=== PATIENT | female | born 1975 | race Caucasian/White ===

== ENCOUNTER → 2017-11-12 | Outpatient (CLI) | payer OTHER ==
--- NOTE | 2017-11-12 18:36 | Diagnostic Imaging Report ---
EXAMINATION: MRI of the lumbar spine without contrast HISTORY: Low back pain radiating along the back of the left lower extremity for the last 2 months COMPARISON: None. TECHNIQUE: Sagittal T1, T2, STIR; axial T2 and proton density. FINDINGS: It is assumed that there are 5 lumbar vertebrae. Curvature/Alignment: Normal lordosis. Vertebrae: No evidence of recent fracture, infection, or neoplasm. Conus: Normal, terminating at L1-L2 Cauda equina: Unremarkable. Lower thoracic: Asymmetric to the left is old at T11 and T12 and to the right at T10-11 without significant stenosis. Paraspinal soft tissues: Unremarkable. Degenerative changes: L1-L2: Unremarkable. L2-L3: Minimal symmetric folds without canal or foraminal stenosis L3-L4: Mild asymmetric to left disc bulge, small 3 mm AP diameter central disc protrusion without associated canal stenosis or neural compression L4-L5: Asymmetric to the right disc bulge and facet processes result in prominent narrowing of the right lateral recess, with possible displacement of the traversing right L5 nerve root. Approximately 7 mm AP diameter left subarticular inferiorly migrated disc extrusion, which is compressing the traversing left L5 nerve root. L5-S1: Asymmetric to the left disc osteophyte, ligamentum flavum thickening and facet processes. Prominent narrowing of the left lateral recesses, with displacement of the traversing left S1 nerve root. Moderate left and mild right foraminal stenoses. Sacroiliac joints: Unremarkable. IMPRESSION: 1. Prominent left subarticular inferiorly migrated disc herniation at L4-L5, which is compressing the left L5 nerve root. 2. 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 Signed by: Dr. Mylene Michele M.D. on 11/12/2017 6:33 PM
== END ==
LOC: MRI 14:18
PROVIDERS: ATTEND Family Medicine
DX: M51.26 Other intervertebral disc displacement, lumbar region (principal); R20.2 Paresthesia of skin
CPT/HCPCS: 72148; 81025

== ENCOUNTER 2017-11-22 06:11 | Observation (INO) | payer OTHER ==
[2017-11-20 12:57] LABS: BASOPHILS # (AUTO) 0.1 (0.0-0.1); BASOPHILS % 0.4 % (0.0-1.0); EOSINOPHILS # (AUTO) 0.3 (0.0-0.4); EOSINOPHILS % 2.1 % (0.0-6.0); HEMATOCRIT 41.4 % (34.2-44.1); HEMOGLOBIN 14.1 g/dL (12.0-16.0); LYMPHOCYTES # (AUTO) 3.2 (1.0-3.2); LYMPHOCYTES % 22.7 % (18.0-39.1); MEAN CORPUSCULAR HEMOGLOBIN 30.5 pg (28-32); MEAN CORPUSCULAR HGB CONC 34.1 g/dL (31-35); MEAN CORPUSCULAR VOLUME 89.6 fL (81-99); MONOCYTES # (AUTO) 0.9 (0.2-0.8); MONOCYTES % 6.5 % (4.4-11.3); NEUTROPHILS # (AUTO) 9.5 (2.1-6.9); NEUTROPHILS % 67.8 % (38.7-80.0); PLATELET COUNT 262 x10e3/uL (140-360); RED BLOOD COUNT 4.62 x10e6/uL (3.6-5.1); RED CELL DISTRIBUTION WIDTH 13.2 % (11.7-14.4)
[2017-11-20 13:08] LABS: INR 1.05; PARTIAL THROMBOPLASTIN TIME 27.1 seconds (23.8-35.5); PROTHROMBIN TIME 12.9 seconds (11.9-14.5)
--- NOTE | 2017-11-20 13:09 | Diagnostic Imaging Report ---
PROCEDURE: Frontal and lateral views of the chest. COMPARISON: None. INDICATIONS: PRE OPERATIVE CHEST X-RAY FOR BACK SURGERY FINDINGS: Lines/tubes: None. Lungs: The lungs are well inflated and clear. There is no evidence of pneumonia or pulmonary edema. Pleura: There is no pleural effusion or pneumothorax. Heart and mediastinum: The heart and the mediastinum are normal. Bones: No acute bony abnormality. IMPRESSION: No acute radiographic abnormality. Dictated by: Mike Granger M.D. on 11/20/2017 at 13:09 Electronically approved by: Mike Granger M.D. on 11/20/2017 at 13:09
[2017-11-20 13:17] LABS: BLOOD UREA NITROGEN 14 mg/dL (7-26); BUN/CREATININE RATIO 19 (6-25); CALCIUM 9.3 mg/dL (8.4-10.2); CARBON DIOXIDE 26 mmol/L (22-29); CHLORIDE 106 mmol/L (98-107); CREATININE, SERUM 0.75 mg/dL (0.57-1.11); EST GLOMERULAR FILTRATION RATE > 60 ML/MIN (60-); GLUCOSE 107 mg/dL (74-118); SODIUM 140 mmol/L (136-145)
[~2017-11-22] VITALS: Ht 177.8 cm; Wt 111.4 kg
[~2017-11-22 06:11] MED LIST: TYLENOL WITH C1 EACH PO
--- OUTSIDE RECORDS SUMMARY | 2017-11-22 06:14 | XMS REPORT ---
Author [facility] Address Unknown Phone Unavailable Care Team Providers Care Band Saw Operator Name Role Phone NESTOR RAMIRES Unavailable Unavailable CYNTHIA MADISON Unavailable Unavailable Problems This patient has no known problems. Allergies, Adverse Reactions, Alerts This patient has no known allergies or adverse reactions. Medications This patient has no known medications. Results Test Description Test Time Test Comments Text Results Atomic Results Result Comments CHEST 2 VIEWS [place] [address] Patient Name: RANDOLPH HUYNH MR #: [id number] : 1975 Age/Sex: 42/F Req #: [id number] [facility] Physician: Ordered by: NETSOR RAMIRES MD Report #: [id number] Location: OR Room/Bed: Procedure: [id number] DX/CHEST 2 VIEWS Exam Date: 11/20/17 Exam Time: 1240 REPORT STATUS: Signed PROCEDURE: Frontal and lateral views of the chest. COMPARISON: None. INDICATIONS: PRE OPERATIVE CHEST X-RAY FOR BACK SURGERY FINDINGS: Lines/tubes: None. Lungs: The lungs are well inflated and clear. There is no evidence of pneumonia or pulmonary edema. Pleura: There is no pleural effusion or pneumothorax. Heart and mediastinum: The heart and the mediastinum are normal. Bones: No acute bony abnormality. IMPRESSION: No acute radiographic abnormality. Dictated by: Sivakumar Patiño M.D. on 11/20 at 13:09 Electronically approved by: Sivakumar Patiño M.D. on 2017 at 13:09 Dictated By: SIVAKUMAR PATIÑO MD Transcribed By: YVROSE on 11/20/17 130 COPY TO: NESTOR RAMIRES MD MRI SPINE LUMBAR WO [place] [address] Patient Name: RANDOLPH HUYNH MR #: [id number] : 1975 Age/Sex: 42/F Req #: [id number] Adm Physician: Ordered by: CYNTHIA MADISON DO Report #: [id number] Location: MRI Room/Bed: Procedure: [id number] MRI/MRI SPINE LUMBAR WO Exam Date: Exam Time: REPORT STATUS: Signed EXAMINATION: MRI of the lumbar spine without contrast HISTORY: Low back pain radiating along the back of the left lower extremity for the last 2 months COMPARISON: None. TECHNIQUE: Sagittal T1, T2, STIR; axial T2 and proton density. FINDINGS: It is assumed that there are 5 lumbar vertebrae. Curvature/ Alignment: Normal lordosis. Vertebrae: No evidence of recent fracture, infection, or neoplasm. Conus: Normal, terminating at L1-L2 Cauda equina: Unremarkable. Lower thoracic: Asymmetric to the left is old at T11 and T12 and to the right at T10-11 without significant stenosis. Paraspinal soft tissues: Unremarkable. Degenerative changes: L1-L2 : Unremarkable. L2-L3: Minimal symmetric folds without canal or foraminal stenosis L3-L4: Mild asymmetric to left disc bulge, small 3 mm AP diameter central disc protrusion without associated canal stenosis or neural compression L4-L5: Asymmetric to the right disc bulge and facet processes result in prominent narrowing of the right lateral recess, with possible displacement of the traversing right L5 nerve root. Approximately 7 mm AP diameter left subarticular inferiorly migrated disc extrusion, which is compressing the traversing left L5 nerve root. L5-S1: Asymmetric to the left disc osteophyte, ligamentum flavum thickening and facet processes. Prominent narrowing of the left lateral recesses, with displacement of the traversing left S1 nerve root. Moderate left and mild right foraminal stenoses. Sacroiliac joints: Unremarkable. IMPRESSION: 1. Prominent left subarticular inferiorly migrated disc herniation at L4-L5, which is compressing the left L5 nerve root. 2. 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 Signed by: Dr. Genna Michele M.D. on 11/12/2017 6:33 PM Dictated By: GENNA MICHELE MD 183 Transcribed By: ROSANA on 11/12/17 183 COPY TO: YCNTHIA MADISON DO
[2017-11-22] MEDS ORDERED: GELATIN SPONGE SZ 100 ONE (06:48)
[2017-11-22] MEDS ORDERED: THROMBIN FOR SOLN 5,000 UNIT VIAL ONE (06:48)
[2017-11-22] MEDS ORDERED: BACITRACIN 50,000 UNIT VIAL ONE (06:48)
[2017-11-22] MEDS ORDERED: CYCLOBENZAPRINE5 MG PO (06:49)
[2017-11-22] MEDS ORDERED: ACETAMINOPHEN 1000 MG/100 ML 100 ML IV ONE (06:59)
[2017-11-22] MEDS ORDERED: LIDOCAINE HCL (LTA) 4 ML SOLN ONE (06:59)
[2017-11-22] MEDS ORDERED: CEFAZOLIN SOD 2 GM/D5W 50ML 50 ML IV ONE (07:10)
[2017-11-22] MEDS ORDERED: LIDOCAINE 2% /EPINEPHRINE 20 ML SDV INJ ONE (07:15)
[2017-11-22] MEDS ORDERED: PROMETHAZINE HCL (IM) 25 MG/ML VIAL IM PRN (10:30)
[2017-11-22] MEDS ORDERED: ACETAMINOPHEN 325 MG TAB PO PRN (10:30)
[2017-11-22] MEDS ORDERED: CARISOPRODOL 350 MG TAB PO PRN (10:30)
[2017-11-22] MEDS ORDERED: ZOLPIDEM TARTRATE 5 MG TAB PO PRN (10:30)
[2017-11-22] MEDS ORDERED: MORPHINE SULFATE 5 MG/ML VIAL IM PRN (10:30)
[2017-11-22] MEDS ORDERED: CEPACOL SORE THROAT LOZENGES PO PRN (10:30)
[2017-11-22] MEDS ORDERED: MAGNESIUM/ALUMINUM/SIMETHICONE 30 ML UDC PO PRN (10:30)
[2017-11-22] MEDS ORDERED: HYDROMORPHONE 2MG/ML INJ IV PRN (10:30)
[2017-11-22] MEDS ORDERED: ONDANSETRON HCL INJ 2 MG/ML VIAL IV PRN (10:30)
[2017-11-22] MEDS ORDERED: HYDROMORPHONE 1MG/1ML INJ ONE (10:58)
[2017-11-22 12:01] VITALS: BP 145/67
[2017-11-22] MEDS: LACTATED RINGER'S 1,000 ML IV SCH ×3 (14:00→22:59)
[2017-11-22] MEDS ORDERED: CEFAZOLIN SOD 1 GM/NS 50ML 50 ML IV SCH (14:00)
[2017-11-22] MEDS: CEFAZOLIN SOD 1 GM VIAL IV SCH ×2 (14:12→22:00)
--- NOTE | 2017-11-22 15:20 | Operative Report ---
DATE OF PROCEDURE: November 22, 2017 PREOPERATIVE DIAGNOSIS: Left L4-5 disk herniation with radiculopathy, M51.16. POSTOPERATIVE DIAGNOSIS: Left L4-5 disk herniation with radiculopathy, M51.16. PROCEDURE: Left L4-L5 laminotomy, medial facetectomy, and microsurgical diskectomy, 66492. ANESTHESIA: General. INDICATIONS: Patient is a 42-year-old woman who presents with a left L4-L5 disk extrusion with inferior migration of the extruded disk fragment into the left L5 lateral recess with marked compression of that nerve root. She was taken to operating room for microsurgical diskectomy. PROCEDURE IN DETAIL: After induction of general anesthesia, the patient was placed on the operating table in prone position over a Alfonzo frame. Lumbar region was prepped and draped in sterile fashion. A preoperative x-ray was obtained. A midline incision was created. Lumbar fascia was opened in left of midline and subperiosteal dissection was carried out to expose the underlying laminae. Localization was found at L5-S1 by x-ray and one level was counted above this level to locate the correct L4-5 segment without extending the incision. The medial aspect of the left L4-L5 facet joint was exposed. The operating microscope was brought in. A high-speed drill equipped with ivy haris was used to drill the inferior aspect of lamina of L4 and the medial rim of the L4-5 facet joint and the superior aspect of lamina of L5. The ligamentum flavum was resected. The dural sac and the traversing L5 nerve root were exposed. The epidural veins lateral to the nerve root were bipolar coagulated and divided with microscissors. A ball probe was passed ventral to the nerve root and directed inferiorly and used to palpate the extruded disk material in the L5 lateral recess. Edge of the disk was then delivered out with a ball probe and then grasped with a micro pituitary rongeur. The disk was carefully delivered out from the lateral recess with a micro pituitary rongeur. This achieved the immediate decompression of the L5 nerve root in the region of the lateral recess. The opening into the annulus of the disk was enlarged with an #11 blade. The subligamentous portion of the disk herniation was retrieved and removed with angled curets and up-angled pituitary rongeurs. The loose contents of the L4-L5 disk were evacuated with curettes and pituitary rongeurs. Excellent decompression was thus achieved. The wound was irrigated with Bacitracin solution and closed in multiple layers with 0 and 2-0 Vicryl sutures and 3-0 Monocryl sutures in subcuticular fashion. Steri-Strips and dressing were applied. The patient was awakened and extubated in postanesthesia care unit in stable condition. No intraoperative complications were encountered. Estimated blood loss was 10 mL. Job#: [id number] SAK
[2017-11-22 16:18] VITALS: BP 164/70
[2017-11-22 16:22] VITALS: BP 106/55
[2017-11-22] MEDS ORDERED: PROPOFOL IV EMULSION 10 MG/ML 20 ML VIAL ONE (18:10)
[2017-11-22] MEDS ORDERED: SEVOFLURANE INHAL SOLN 250 ML PEN BTL ONE (18:10)
[2017-11-22] MEDS ORDERED: GLYCOPYRROLATE INJ 1MG/ 5 ML SYR ONE (18:10)
[2017-11-22] MEDS ORDERED: ONDANSETRON HCL INJ 2 MG/ML VIAL ONE (18:10)
[2017-11-22] MEDS ORDERED: DEXAMETHASONE SOD PHOS INJ 4 MG/ML VIAL ONE (18:10)
[2017-11-22] MEDS ORDERED: LIDOCAINE HCL 2% JELLY 5 ML TUBE ONE (18:10)
[2017-11-22] MEDS ORDERED: LIDOCAINE HCL 2% LOCAL INJ 5 ML SDV VIAL INJ ONE (18:10)
[2017-11-22] MEDS ORDERED: EYE LUBRICANT OPTH OINT 3.5GM TUBE OP ONE (18:10)
[2017-11-22] MEDS ORDERED: ROCURONIUM BROMIDE 10 MG/ML 5ML VIAL ONE (18:10)
[2017-11-22] MEDS ORDERED: NEOSTIGMINE 5 MG/5ML SYR ONE (18:10)
[2017-11-22] MEDS ORDERED: FENTANYL CITRATE/PF 100MCG/2 ML INJ ONE (18:31)
[2017-11-22] MEDS ORDERED: MIDAZOLAM HCL 2 MG/2 ML VIAL ONE (18:31)
[2017-11-22 20:00] VITALS: BP 119/56
[2017-11-22] MEDS: OXYCODONE/ACETAMINOPHEN 5-325 1 EACH TABLET PO PRN (22:29)
[2017-11-23] MEDS: OXYCODONE/ACETAMINOPHEN 5-325 1 EACH TABLET PO PRN (04:44)
[2017-11-23 05:01] VITALS: BP 110/52
[2017-11-23] MEDS: CEFAZOLIN SOD 1 GM VIAL IV SCH (05:44)
[2017-11-23] MEDS ORDERED: NORCO 7.5-3251 EACH PO (07:38)
[2017-11-23 08:26] VITALS: BP 108/54
== END 2017-11-23 09:43 | disposition home or self-care (01) ==
LOC: OR 06:11 → IMCU 11:05
PROVIDERS: ADMIT Neurological Surgery; ATTEND Neurological Surgery
DX: M51.16 Intervertebral disc disorders with radiculopathy, lumbar region (principal); F17.210 Nicotine dependence, cigarettes, uncomplicated
CPT/HCPCS: 36415; 63047; 71046; 72020; 80048; 81025; 85025; 85610; 85730; 86850; 86900; 88304; 93005; G0378 ×2; J0690 ×2; J1100; J1170 ×2; J2001 ×3; J2250; J2405; J7120; J2550

== ENCOUNTER 2017-12-01 06:23 | Emergency (ER) | payer OTHER ==
[~2017-12-01] VITALS: Ht 177.8 cm; Wt 111.1 kg
[~2017-12-01 06:23] MED LIST changes: +CYCLOBENZAPRINE5 MG PO; +NORCO 7.5-3251 EACH PO
--- OUTSIDE RECORDS SUMMARY | 2017-12-01 06:25 | XMS REPORT | Continuity of Care Document ---
Author Author [facility] Address [address] [place] [place] [address] Phone Unavailable Care Team Providers Care Product Sales Representative Name Role Phone CYNTHIA MADISON DO PCP Insurance Providers Guarantor Lynsey Huynh Address [address] [place] [address] Email [email or web address] Payer [employer] Pos Policy Number [id number] Subscriber's Name Yung Huynhina Relationship 18 Self / Same As Patient Group Name [id number] Effective Date 17 Advance Directives Directive Response Recorded Date/Time Does the patient have an advance directive? No 11/22/17 12:01pm If yes, is advance directive on file with [facility]? No 11/22/17 12:01pm If not on file with [facility] will patient provide a copy? No 11/22/17 12:01pm Do you have a Directive to Physician? No 11/20/17 11:54am Do you have a Medical Power of Electric Transfer Operator? No 11/20/17 11:54am Do you have an out of hospital Do Not Resuscitate Order? No 11/20/17 11:54am Do you have any special needs we should be aware of? No 11/20/17 11:54am Do you have a support person here with you today? Yes 11/20/17 11:54am Did patient receive Notice of Privacy Practices? Yes 11/20/17 11:54am Did patient receive patient rights and responsibilities? Yes 11/20/17 11:54am Problems No problem information available. Medications Current Home Medications Medication Dose Units Route Directions Days Qty Instructions Start Date Acetaminophen With Codeine (Tylenol With Codeine #3 Tablet) 1 Each Tablet 300 Mg Oral As Needed Cyclobenzaprine Hcl (Flexeril) 5 Mg Tablet Unknown Dose Oral As Needed as needed for Muscle Spasms Hydrocodone Bit/Acetaminophen (Bovina 7.5-325 Tablet) 1 Each Tablet 1 Ea Oral Every 6 Hours as needed for Pain Hydrocodone Bit/Acetaminophen (Bovina 7.5-325 Tablet) 1 Each Tablet 2 Ea Oral Every 6 Hours as needed for Pain Social History Social History Problem Response Recorded Date/Time Onset Date Status Hx Psychiatric Problems No 11/22/2017 12:01pm Not Applicable Not Applicable Hx Eating Disorder No 11/22/2017 12:01pm Not Applicable Not Applicable Hx Substance Use Disorder No 11/22/2017 12:01pm Not Applicable Not Applicable Hx Depression No 11/22/2017 12:01pm Not Applicable Not Applicable Hx Alcohol Use No 11/22/2017 12:01pm Not Applicable Not Applicable Hx Substance Use Treatment No 11/22/2017 12:01pm Not Applicable Not Applicable Hx Physical Abuse No 11/22/2017 12:01pm Not Applicable Not Applicable Smoking Status Start Date Stop Date Current every day smoker Hospital Discharge Instructions No hospital discharge instruction information available. Plan of Care Discharge Date 11/23/17 9:43am Disposition HOME, SELF-CARE Instructions/Education Provided Post Operative Pain Prescriptions See Medication Section Referrals NESTOR RAMIRES MD (Neurology) Order Date: 1-2 Weeks Entered Date: 11/23/2017 7:47am Address: [address] [place] [address] [address] [place] [address] Additional Instructions/Education See pre-printed Lumbar Laminectomy/ Discectomy Functional Status Query Response Date Recorded Assistive Devices None November 22, 2017 12:01pm Ambulation Ability Independent November 22, 2017 12:01pm Toileting Ability Independent November 22, 2017 12:01pm Allergies, Adverse Reactions, Alerts No known allergies. Immunizations No immunization information available. Vital Signs Acute Vital Signs Vital Response Date/Time Temperature (Fahrenheit) 97.0 degrees F (97.6 - 99.5) 11/23/2017 8:26am Pulse Pulse Rate (adult) 61 bpm (60 - 90) 11/23/2017 8:26am Respiratory Rate 18 bpm (12 - 24) 11/23/2017 8:26am Blood Pressure 108/54 mm Hg 11/23/2017 8:26am Height 5 ft 10 in 11/22/2017 12:01pm Weight 245.56 lb 11/22/2017 12:01pm Body Mass Index 35.2 kg/m^2 11/22/2017 12:01pm Results Laboratory Results Test Name Result Units Flags Reference Collection Date/Time Result Date/ Time Comments White Blood Count 13.99 x10e3/uL H 4.8-10.8 11/20/2017 12:45pm 2017 1:20pm Red Blood Count 4.62 x10e6/uL 3.6-5.1 11/20/2017 12:45pm 11/20/2017 1: 20pm Hemoglobin 14.1 g/dL 12.0-16.0 11/20/2017 12:45pm 11/20/2017 1:20pm Hematocrit 41.4 % 34.2-44.1 11/20/2017 12:45pm 11/20/2017 1:20pm Mean Corpuscular Volume 89.6 fL 81-99 11/20/2017 12:45pm 11/20/2017 1: 20pm Mean Corpuscular Hemoglobin 30.5 pg 28-32 11/20/2017 12:45pm 2017 1:20pm Mean Corpuscular Hemoglobin Concent 34.1 g/dL 31-35 11/20/2017 12:45pm 11/20/2017 1:20pm Red Cell Distribution Width 13.2 % 11.7-14.4 11/20/2017 12:45pm 2017 1:20pm Platelet Count 262 x10e3/uL 140-360 11/20/2017 12:45pm 11/20/2017 1: 20pm Neutrophils (%) (Auto) 67.8 % 38.7-80.0 11/20/2017 12:45pm 11/20/2017 1 :20pm Lymphocytes (%) (Auto) 22.7 % 18.0-39.1 11/20/2017 12:45pm 11/20/2017 1 :20pm Monocytes (%) (Auto) 6.5 % 4.4-11.3 11/20/2017 12:45pm 11/20/2017 1: 20pm Eosinophils (%) (Auto) 2.1 % 0.0-6.0 11/20/2017 12:45pm 11/20/2017 1: 20pm Basophils (%) (Auto) 0.4 % 0.0-1.0 11/20/2017 12:45pm 11/20/2017 1: 20pm IM GRANULOCYTES % 0.5 % 0.0-1.0 11/20/2017 12:45pm 11/20/2017 1:20pm Neutrophils # (Auto) 9.5 H 2.1-6.9 11/20/2017 12:45pm 11/20/2017 1: 20pm Lymphocytes # (Auto) 3.2 1.0-3.2 11/20/2017 12:45pm 11/20/2017 1: 20pm Monocytes # (Auto) 0.9 H 0.2-0.8 11/20/2017 12:45pm 11/20/2017 1:20pm Eosinophils # (Auto) 0.3 0.0-0.4 11/20/2017 12:45pm 11/20/2017 1: 20pm Basophils # (Auto) 0.1 0.0-0.1 11/20/2017 12:45pm 11/20/2017 1:20pm Absolute Immature Granulocyte (auto 0.07 x10e3/uL 0-0.1 11/20/2017 12: 45pm 11/20/2017 1:20pm Prothrombin Time 12.9 seconds 11.9-14.5 11/20/2017 12:45pm 11/20/2017 1 :22pm Prothromb Time International Ratio 1.05 11/20/2017 12:45pm 2017 1:22pm Oral Anticoagulant Therapy INR Values: 1. Low Intensity Therapy 1.5 - 2.0 2. Moderate Intensity Therapy 2.0 - 3.0 3. High Intensity Therapy(1) 2.5 - 3.5 4. High Intensity Therapy(2) 3.0 - 4.0 5. Panic Value INR > 5.0 Activated Partial Thromboplast Time 27.1 seconds 23.8-35.5 11/20/2017 12 :45pm 11/20/2017 1:22pm Urine Test NEGATIVE NEGATIVE 11/22/2017 6:39am 11/22/2017 6 :59am Sodium Level 140 mmol/L 136-145 11/20/2017 12:45pm 11/20/2017 1:19pm Potassium Level 4.0 mmol/L 3.5-5.1 11/20/2017 12:45pm 11/20/2017 1: 19pm Chloride Level 106 mmol/L 98-107 11/20/2017 12:45pm 11/20/2017 1:19pm Carbon Dioxide Level 26 mmol/L 22-11/20/2017 12:45pm 11/20/2017 1: 19pm Anion Gap 12.0 mmol/L 8-16 11/20/2017 12:45pm 11/20/2017 1:19pm Blood Urea Nitrogen 14 mg/dL 7-11/20/2017 12:45pm 11/20/2017 1:19pm Creatinine 0.75 mg/dL 0.57-1.11 11/20/2017 12:45pm 11/20/2017 1:19pm BUN/Creatinine Ratio 19 6-25 11/20/2017 12:45pm 11/20/2017 1:19pm Estimat Glomerular Filtration Rate > 60 ML/MIN 60- 11/20/2017 12:45pm 11/20/2017 1:19pm Ranges were taken from the National Kidney Disease Education Program and the National Kid[employer] Foundation literature. Reference ranges: 60 or greater: Normal 16-59 (for 3 consecutive months): Chronic kidney disease 15 or less: Kidney failure Glucose Level 107 mg/dL 74-118 11/20/2017 12:45pm 11/20/2017 1:19pm Calcium Level 9.3 mg/dL 8.4-10.2 11/20/2017 12:45pm 11/20/2017 1:19pm Procedures Procedure Status Date Provider(s) Left hemilaminectomy of lumbar spine Completed 11/22/17 NESTOR RAMIRES MD Magnetic resonance imaging of lumbar spine without contrast Active 11/12/17 CYNTHIA MADISON DO X-ray of chest, two views Active 11/20/17 NESTOR RAMIRES MD Encounters Encounter Location Arrival/Admit Date Discharge/Depart Date Attending Provider Discharged Inpatient (obs) [facility] 11/22/17 11:05am 9:43am NESTOR RAMIRES MD Registered Clinic [facility] 11/12/17 2:18pm CYNTHIA MADISON DO
[2017-12-01] MEDS ORDERED: ONDANSETRON HCL INJ 2 MG/ML VIAL IV STA (06:40)
[2017-12-01] MEDS ORDERED: KETOROLAC TROMETHAMINE 30 MG/ML VIAL IV STA (06:40)
[2017-12-01] MEDS ORDERED: SODIUM CHLORIDE 0.9% 1000ML 1,000 ML IV STA (06:40)
--- NOTE | 2017-12-01 07:14 | Diagnostic Imaging Report ---
EXAMINATION: CHEST SINGLE (PORTABLE) INDICATION: \S\LE SWELLING \S\[id number] \S\0650 COMPARISON: Chest radiograph from 11/20/2017 FINDINGS: AP view TUBES and LINES: None. LUNGS: Lungs are well inflated. Minimal atelectasis in the right lower lobe, unchanged. There is no evidence of pneumonia or pulmonary edema. PLEURA: No pleural effusion or pneumothorax. HEART AND MEDIASTINUM: Stable mild enlargement of the cardiac silhouette. BONES AND SOFT TISSUES: No acute osseous lesion. Soft tissues are unremarkable. UPPER ABDOMEN: No free air under the diaphragm. IMPRESSION: No acute thoracic abnormality. Signed by: Dr. Keiko Wiseman M.D. on 12/01/2017 7:11 AM
[2017-12-01 07:22] LABS: BASOPHILS # (AUTO) 0.1 (0.0-0.1); BASOPHILS % 0.5 % (0.0-1.0); EOSINOPHILS # (AUTO) 0.3 (0.0-0.4); EOSINOPHILS % 1.7 % (0.0-6.0); HEMATOCRIT 39.9 % (34.2-44.1); HEMOGLOBIN 13.4 g/dL (12.0-16.0); LYMPHOCYTES # (AUTO) 2.8 (1.0-3.2); MEAN CORPUSCULAR HEMOGLOBIN 29.8 pg (28-32); MEAN CORPUSCULAR HGB CONC 33.6 g/dL (31-35); MEAN CORPUSCULAR VOLUME 88.9 fL (81-99); MONOCYTES # (AUTO) 1.1 (0.2-0.8); MONOCYTES % 6.7 % (4.4-11.3); NEUTROPHILS % 73.5 % (38.7-80.0); PLATELET COUNT 249 x10e3/uL (140-360); RED BLOOD COUNT 4.49 x10e6/uL (3.6-5.1); RED CELL DISTRIBUTION WIDTH 12.9 % (11.7-14.4)
[2017-12-01 07:24] LABS: BILIRUBIN,URINE NEGATIVE (NEGATIVE); KETONES,URINE NEGATIVE (NEGATIVE); LEUKOCYTE ESTERASE ,URINE TRACE (NEGATIVE); NITRITE,URINE NEGATIVE (NEGATIVE); PROTEIN,URINE DIPSTICK NEGATIVE (NEGATIVE); URINE UROBILINOGEN 0.2 mg/dL (0.2 - 1)
[2017-12-01 07:27] LABS: PREGNANCY TEST, URINE NEGATIVE (NEGATIVE)
[2017-12-01 07:31] LABS: CLARITY,URINE HAZY (CLEAR); COLOR,URINE YELLOW (YELLOW); WBC,URINE (MAN) 0-5 /HPF (0-5)
[2017-12-01 07:32] LABS: BACTERIA,URINE MODERATE /HPF; EPITHELIAL CELLS,URINE MANY /LPF
[2017-12-01 07:34] LABS: INR 1.04; PARTIAL THROMBOPLASTIN TIME 28.3 seconds (23.8-35.5); PROTHROMBIN TIME 12.8 seconds (11.9-14.5)
[2017-12-01 07:42] LABS: ALANINE AMINOTRANSFERASE 18 IU/L (0-55); ALBUMIN 3.5 g/dL (3.5-5.0); ALBUMIN/GLOBULIN RATIO 0.8 (0.8-2.0); ALKALINE PHOSPHATASE 91 IU/L (40-150); ANION GAP 14.9 mmol/L (8-16); BLOOD UREA NITROGEN 12 mg/dL (7-26); BUN/CREATININE RATIO 17 (6-25); CALCIUM 9.2 mg/dL (8.4-10.2); CARBON DIOXIDE 23 mmol/L (22-29); CHLORIDE 105 mmol/L (98-107); EST GLOMERULAR FILTRATION RATE > 60 ML/MIN (60-); GLUCOSE 146 mg/dL (74-118); POTASSIUM 3.9 mmol/L (3.5-5.1); SODIUM 139 mmol/L (136-145)
[2017-12-01] MEDS ORDERED: ENOXAPARIN SODIUM INJ 100 MG/ML SYR SC NR (09:45)
[2017-12-01 10:51] VITALS: BP 105/49
== END 2017-12-01 11:16 | disposition home or self-care (01) ==
LOC: ER 06:23
DX: M79.604 Pain in right leg (principal); I82.411 Acute embolism and thrombosis of right femoral vein; I82.431 Acute embolism and thrombosis of right popliteal vein; F17.210 Nicotine dependence, cigarettes, uncomplicated
CPT/HCPCS: 36415; 71045; 80053; 81001; 81025; 83880; 85025; 85610; 85730; 93971; 99284; J1650; J1885; J2405; J7030